=== PATIENT | female | born 1965 | race Two or more races ===

== ENCOUNTER 2024-05-23 12:00 | Inpatient (IN) | payer OTHER ==
[~2024-05-23] VITALS: Ht 160 cm; Wt 63.5 kg
[2024-05-23] MEDS ORDERED: ZESTRIL20 MG PO (13:05)
[2024-05-23] MEDS ORDERED: MONTELUKAST SOD10 MG PO (13:06)
[2024-05-23] MEDS ORDERED: SIMVASTATIN40 MG PO (13:06)
[2024-05-23] MEDS ORDERED: TENORMIN25 MG PO (13:06)
[2024-05-23 13:07] VITALS: BP 140/80
[2024-05-23 13:10] VITALS: BP 123/83
[2024-05-23 13:31] LABS: COVID-19 AG NEGATIVE (NEGATIVE)
[2024-05-23 13:52] LABS: RH POSITIVE
[2024-05-31] MEDS ORDERED: POVIDONE-IODINE 118 ML BOTT TOP ONE (14:23)
[2024-05-31] MEDS ORDERED: METRONIDAZOLE/SODIUM CHLORIDE 500 MG/100 ML PIGGYBACK IV ONE (14:23)
[2024-05-31] MEDS ORDERED: CEFAZOLIN SODIUM 1,000 MG VIAL ONE ×2 (14:24→19:39)
[2024-05-31] MEDS ORDERED: GABAPENTIN300 M2 (14:54)
[2024-05-31] MEDS ORDERED: SURGIFLO APPLICATOR 1 EACH APPL TOP ONE (15:31)
[2024-05-31] MEDS ORDERED: HEMOSTATIC MATRIX 1 KIT KIT TOP ONE (15:31)
[2024-05-31] MEDS ORDERED: MORPHINE SULFATE 4 MG/ML CARTRIDGE IV PRN (16:30)
[2024-05-31] MEDS ORDERED: ONDANSETRON HCL 2 MG/ML VIAL IV PRN (16:30)
[2024-05-31] MEDS ORDERED: RINGERS SOLUTION,LACTATED 1,000 ML IV SCH (16:30)
[2024-05-31] MEDS ORDERED: OxyCODONE HCL 5 MG TABLET (ROXICODONE) PO PRN (16:30)
[2024-05-31] MEDS ORDERED: CEFAZOLIN SODIUM 1,000 MG VIAL IV SCH (17:00)
[2024-05-31] MEDS ORDERED: SIMETHICONE 125 MG CAPSULE PO SCH (17:00)
[2024-05-31] MEDS ORDERED: KETOROLAC TROMETHAMINE 30 MG VIAL IM SCH (18:00)
[2024-05-31] MEDS ORDERED: ACETAMINOPHEN 500 MG GEL..CAP PO SCH (18:00)
[2024-05-31] MEDS ORDERED: KETOROLAC TROMETHAMINE 30 MG VIAL ONE (19:50)
[2024-05-31 20:48] LABS: HEMATOCRIT 35.5 % (36.0-45.00); HEMOGLOBIN 12.2 g/dL (12.0-15.00); MEAN CELL VOLUME 91.2 fL (80.00-100.00); MEAN CORPUSCULAR HEMOGLOBIN 31.3 pg (27.00-32.0); MEAN CORPUSCULAR HGB CONC 34.3 g/dl (32.0-36.0); PLATELET COUNT 268 K/uL (150-450); RED CELL DISTRIBUTION WIDTH 13.3 % (11.5-14.5)
[2024-05-31 20:53] VITALS: BP 140/80; O2SAT 97
[2024-05-31] MEDS ORDERED: DOCUSATE SODIUM 100MG CAP PO SCH ×2 (21:00)
[2024-05-31] MEDS ORDERED: FAMOTIDINE/PF 20 MG/2 ML VIAL IV PUSH SCH (21:00)
[2024-05-31 21:01] LABS: ALBUMIN 3.5 gm/dL (3.4-5.0); CALCIUM 8.7 mg/dL (8.5-10.1); CREATININE SERUM 0.69 mg/dL (0.55-1.02); GFR 86.78; PHOSPHOROUS 3.2 mg/dL (2.5-4.9); POTASSIUM 3.79 mEq/L (3.5-5.1)
[2024-06-01 00:33] VITALS: BP 112/69
[2024-06-01 00:39] VITALS: O2SAT 99
[2024-06-01 06:17] LABS: HEMATOCRIT 34.8 % (36.0-45.00); HEMOGLOBIN 12.2 g/dL (12.0-15.00); MEAN CELL VOLUME 92.6 fL (80.00-100.00); MEAN CORPUSCULAR HEMOGLOBIN 32.4 pg (27.00-32.0); PLATELET COUNT 257 K/uL (150-450); RED BLOOD COUNT 3.76 M/uL (4.00-6.00); RED CELL DISTRIBUTION WIDTH 13.2 % (11.5-14.5)
[2024-06-01 06:40] LABS: ALBUMIN 3.2 gm/dL (3.4-5.0); CALCIUM 8.4 mg/dL (8.5-10.1); CREATININE SERUM 0.74 mg/dL (0.55-1.02); GFR 80.05; POTASSIUM 3.94 mEq/L (3.5-5.1)
[2024-06-01 08:56] VITALS: BP 123/85; O2SAT 100
[2024-06-01] MEDS ORDERED: ENOXAPARIN SODIUM 40 MG/0.4 ML SYRINGE SUBCUTANEO SCH (09:00)
[2024-06-01] MEDS ORDERED: CELECOXIB 200 MG CAPSULE PO SCH (09:00)
== END 2024-06-01 12:34 | disposition home or self-care (01) | DRG 743 ==
LOC: OB/GYN 05-31 09:41 → O/R 05-31 09:41 → OB/GYN 05-31 12:00
PROVIDERS: ADMIT Obstetrics & Gynecology Gynecologic Oncology; ATTEND Obstetrics & Gynecology Gynecologic Oncology
PROC: 07BC4ZZ Excision of Pelvis Lymphatic, Percutaneous Endoscopic Approach (ICD-10-PCS; 2024-05-31)
PROC: 0UT74ZZ Resection of Bilateral Fallopian Tubes, Percutaneous Endoscopic Approach (ICD-10-PCS; 2024-05-31)
PROC: 0UT24ZZ Resection of Bilateral Ovaries, Percutaneous Endoscopic Approach (ICD-10-PCS; 2024-05-31)
PROC: 0UT94ZZ Resection of Uterus, Percutaneous Endoscopic Approach (ICD-10-PCS; principal; 2024-05-31 21:15)
DX: D25.0 Submucous leiomyoma of uterus (principal); N84.1 Polyp of cervix uteri; N80.03 Adenomyosis of the uterus